=== PATIENT | male | born 1975 | race Caucasian/White ===

== ENCOUNTER 2023-08-04 21:18 | Emergency (ER) | payer BC ==
[~2023-08-04] VITALS: Ht 182.9 cm; Wt 97.7 kg
[2023-08-04] MEDS ORDERED: diphenhydrAMINE 50 MG/ML 1 ML VIAL IV ONE (22:00)
[2023-08-04] MEDS ORDERED: Magnesium Sulfate 4% 50 ML IV ONE (22:45)
[2023-08-04] MEDS ORDERED: NS 500 ML IV ONE (22:45)
[2023-08-04] MEDS ORDERED: Ketorolac 30 MG/ML VIAL IV ONE (22:45)
[2023-08-04] MEDS ORDERED: dexAMETHasone 10 MG/ML VIAL IV ONE (22:45)
[2023-08-04 22:48] LABS: BASO % 0.3 % (0.0-2.0); EOS # 0.2 K/mm3 (0.0-0.7); EOS % 1.6 % (0.0-4.0); GRAN # 7.7 K/mm3 (1.4-6.5); GRAN % 83.1 % (42.2-75.2); HEMATOCRIT 43.5 % (42.0-52.0); HEMOGLOBIN 14.8 g/dl (13.5-18.0); LYMPH % 10.2 % (20.0-51.0); MEAN CELL VOLUME 86 fl (80.0-100.0); MEAN CORPUSCULAR HEMOGLOBIN 29 pg (27-31); MEAN CORPUSCULAR HGB CONC 34 g/dl (33.0-37.0); MEAN PLATELET VOLUME 8.6 fl (7.4-10.4); MONO # 0.4 K/mm3 (0.1-0.6); MONO % 4.6 % (1.7-9.3); PLATELET COUNT 199 K/mm3 (130-400); RED BLOOD COUNT 5.04 M/mm3 (4.20-5.60); REDCELL DISTRIBUTION WIDTH-CV 13.1 % (11.5-14.5)
[2023-08-04 22:57] LABS: INR 1.1 (0.8-3.0); PROTHROMBIN TIME 12.4 SECONDS (9.7-12.8)
[2023-08-04 23:00] LABS: PARTIAL THROMBOPLASTIN TIME 30.1 SECONDS (26.0-37.0)
[2023-08-04 23:07] LABS: CALCIUM 9.5 mg/dL (8.4-10.2); CREATININE, serum 1.12 mg/dL (0.72-1.25); MAGNESIUM 2.1 mg/dL (1.6-2.6); POTASSIUM 3.8 mmol/L (3.5-4.5)
[2023-08-04] MEDS ORDERED: Azithromycin 250 MG TAB PO ONE (23:45)
[2023-08-05] MEDS ORDERED: ZITHROMAX Z PA250 MG PO (00:05)
[2023-08-05 00:17] VITALS: BP 137/85; PULSE 71; TEMP 98.5
== END 2023-08-05 00:17 | disposition home or self-care (01) ==
LOC: COL.ER 21:18
PROVIDERS: Internal Medicine
DX: G43.019 Migraine without aura, intractable, without status migrainosus (principal); J18.9 Pneumonia, unspecified organism
CPT/HCPCS: J1100; J1200; J1885; J2765; J3475; J7040